=== PATIENT | female | born 1980 | race Caucasian/White ===

== ENCOUNTER 2017-10-18 18:01 | Emergency (ER) | payer SELFPAY ==
[~2017-10-18] VITALS: Ht 157.5 cm; Wt 62.1 kg
[2017-10-18 18:03] VITALS: BP 137/96; Ht 157.5 cm; Wt 62.1 kg
== END 2017-10-18 18:48 | disposition home or self-care (01) ==
LOC: ED 18:01
DX: S50.862A Insect bite (nonvenomous) of left forearm, initial encounter (principal); W57.XXXA Bitten or stung by nonvenomous insect and other nonvenomous arthropods, initial encounter; Y93.89 Activity, other specified; Y92.89 Other specified places as the place of occurrence of the external cause; Y99.8 Other external cause status